=== PATIENT | female | born 1940 | race Caucasian/White ===

== ENCOUNTER 2020-10-20 12:33 | Outpatient (CLI) | payer MEDICARE, SELFPAY ==
--- NOTE | 2020-10-20 12:42 | XR_ITS ---
WS: [id number] Right wrist, 3 views, 10/20/2020 Clinical Data: RIGHT WRIST PAIN Comparison: None. Findings: No fractures or dislocations are seen. The carpal bones are intact. There is no soft tissue swelling. The distal radius and ulna are not remarkable. There are minimal erosions of the ulnar styloid and triquetrum. XR/XR wrist RT min 3V* [id number] Impression: Minimal erosions of the ulnar styloid and triquetrum of the right wrist.
--- NOTE | 2020-10-20 12:42 | XR_ITS ---
WS: [id number] Right shoulder, 3 views, 10/20/2020 Clinical Data: R SHOULDER PAIN Comparison: None. Findings: No fractures or dislocations are seen. The AC joint is normal. The adjacent right clavicle, right sca pula and ribs are normal. The soft tissues are unremarkable. XR/XR shoulder RT min 2V* [id number] Impression: Negative right shoulder.
--- NOTE | 2020-10-20 12:42 | XR_ITS ---
WS: [id number] Left knee, 3 views, 10/20/2020 Clinical Data: LEFT KNEE PAIN Comparison: None. Findings: No fractures or dislocations are seen. The joint spaces are normal. The patella is intact. The soft t issues are unremarkable. 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 Kellgren-Fernando Classification: grade 0 (none): definite absence of x-ray spencer nges of osteoarthritis
--- NOTE | 2020-10-20 12:42 | XR_ITS ---
WS: [id number] Left shoulder, 3 views, 10/20/2020 Clinical Data: LEFT SHOULDER PAIN Comparison: None. Findings: No fractures or dislocations are seen. The AC joint is normal. The adjacent left clavicle, left scapu la and ribs are normal. The soft tissues are unremarkable. 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
== END 2020-10-20 12:34 | disposition home or self-care (01) ==
PROVIDERS: PCP Family Medicine; Visit Provider Family Medicine
DX: M25.511 Pain in right shoulder (principal); M25.512 Pain in left shoulder; M25.531 Pain in right wrist; M25.562 Pain in left knee
CPT/HCPCS: 73030; 73110; 73562

== ENCOUNTER 2021-01-24 12:46 | Outpatient (CLI) | payer MEDICARE, SELFPAY ==
--- NOTE | 2021-01-24 12:45 | USCV_ITS ---
JenaroMicheline adams Age: 80 Gender: F : 1940 Exam Date: 01/24/2021 13:10 Ordering Phys: Kaiser Zee MD Technologist: An Lion [place]am [place] [facility] [place]ication: PAIN IN LIMB, UNSPECIFIED HISTORY: Pain in left popliteal fossa area PROCEDURES: On the left side, the common femoral, superficial femoral, profunda femoral, popliteal, posterior tibial, greater saphenous veins, and the peroneal trunk were identified and interrogated in the standard fashion. FINDINGS: Normal 2-D Doppler and augmentation and compressibility throughout the lower extremity venous structures. Additional imaging through the proximal calf veins also reveals no thrombus. Limited evaluation of the greater saphenous vein is patent with no thrombus.. Complex cystic mass with low level echos and no vascularity measuring 1.3 x 2.7 cm in the left popliteal fossa. CONCLUSIONS No DVT left lower extremity. Left popliteal fossa Freeman's cyst. Dr. Estrella Couch DO (Electronically Signed) Final Date: 24 January 2021 15:39 S
--- NOTE | 2021-01-24 13:07 | XR_ITS ---
WS: [id number] Exam: XR hand LT min 3V* [id number] Date/Time of Exam: 01/24/2021 1:08 PM Reason For Exam: Z79.899 - Other halfway (current) drug therapy No acute fracture or dislocation. Mild degenerative changes of the IP joints. No soft tissue foreign bodies are seen. XR/XR hand LT min 3V* [id number] IMPRESSION: 1. Minimal degenerative changes. No fracture or dislocation.
--- NOTE | 2021-01-24 13:07 | XR_ITS ---
WS: [id number] Exam: XR foot LT min 3V* [id number] Date/Time of Exam: 01/24/2021 1:08 PM Reason For Exam: Z79.899 - Other fpc (current) drug therapy No acute fracture or dislocation. No radiopaque soft tissue foreign bodies are seen. Calcaneal spurs. Degenerative changes at the ankle mortise. XR/XR foot LT min 3V* [id number] IMPRESSION: 1. Minimal degenerative changes. 2. No fracture or bone destruction.
--- NOTE | 2021-01-24 13:07 | XR_ITS ---
WS: [id number] Exam: XR hand RT min 3V* [id number] Date/Time of Exam: 01/24/2021 1:08 PM Reason For Exam: Z79.899 - Other senior living (current) drug therapy No acute fracture or dislocation. [id number] degenerative changes in the IP joints. No soft tis piedad foreign bodies are seen. No sign of bone destruction. XR/XR hand RT min 3V* [id number] IMPRESSION: 1. Degenerative changes of the IP joints. 2. No fracture or bone destruction noted.
--- NOTE | 2021-01-24 13:07 | XR_ITS ---
WS: [id number] Exam: XR chest 2V* [id number] Date/Time of Exam: 01/24/2021 1:07 PM Reason For Exam: Z79.899 - Other termite treater helper (current) drug therapy No priors. The lungs are clear and fully expanded. Normal cardiomediastinal structures. No pleural effusions. Mi ld degenerative changes and dextroscoliosis of the thoracic spine. XR/XR chest 2V* [id number] IMPRESSION: 1. No acute cardiopulmonary finding.
--- NOTE | 2021-01-24 13:07 | XR_ITS ---
WS: [id number] Exam: XR foot RT min 3V* [id number] Date/Time of Exam: 01/24/2021 1:08 PM Reason For Exam: Z79.899 - Other [facility] (current) drug therapy No fracture or dislocation noted. No soft tissue foreign bodies are seen. Mild degenerative changes i n the midfoot joints and IP joints. Calcaneal spurs. XR/XR foot RT min 3V* [id number] IMPRESSION: 1. No fracture or bone destruction. 2. Mild degenerative changes.
[2021-01-24 14:12] LABS: Basophils # 0.1 10^3/uL (0.0-0.1); Basophils % 0.6 %; Eosinophils # 0.2 10^3/uL (0.0-0.8); Eosinophils % 2.5 %; Hematocrit 42.3 % (37.0-47.0); Hemoglobin 13.1 g/dL (11.5-15.3); Lymphocytes # 1.8 10^3/uL (0.8-4.8); Lymphocytes % 22.2 %; Mean Corpuscular Volume 90.4 fl (81-99); Mean Platelet Volume 9.6 fL (7.4-10.4); Monocytes # 0.6 10^3/uL (0.2-0.9); Neutrophils # 5.51 10^3/uL (1.8-7.7); Neutrophils % 67.5 %; Nucleated Red Blood Cells % 0 %; Platelet Count 484 10^3/cmm (130-400); Red Blood Count 4.68 10^6/uL (4.1-5.3); Red Cell Distribution Width 14.3 % (12.1-15.1); White Blood Count 8.2 10^3/uL (4.0-10.0)
[2021-01-24 14:40] LABS: Alanine Aminotransferase 10 U/L (0-33); Albumin Level 4.2 g/dL (3.5-5.2); Alkaline Phosphatase 131 IU/L (35-105); Aspartate Amino Transferase 17 U/L (0-32); Globulin 3.6 g/dL (1.3-4.6); Total Bilirubin 0.3 mg/dL (0.15-1.2); Total Protein 7.8 g/dL (6.6-8.7)
[2021-01-24 15:17] LABS: Hepatitis B Core AB, Total Non-Reactive (Nonreactive); Hepatitis B Surface Antigen Non-Reactive (Nonreactive); Hepatitis C Virus Antibody Non-Reactive (Nonreactive)
[2021-01-25 14:07] LABS: Cyclic Citrullinated Peptide <16 UNITS
[2021-01-27 15:32] LABS: Quantiferon Mitogen 9.21 IU/mL; Quantiferon Nil 0.01 IU/mL; Quantiferon TB Gold NEGATIVE (NEGATIVE)
== END 2021-01-24 12:47 | disposition home or self-care (01) ==
PROVIDERS: PCP Family Medicine; Visit Provider Internal Medicine Rheumatology
DX: M15.9 Polyosteoarthritis, unspecified (principal); M79.669 Pain in unspecified lower leg; Z79.899 Other long term (current) drug therapy; Z11.59 Encounter for screening for other viral diseases; Z11.1 Encounter for screening for respiratory tuberculosis; Z71.89 Other specified counseling
CPT/HCPCS: 36415; 71046; 73130; 73630; 80076; 82565; 85025; 86200; 86431; 86480; 86704; 86803; 87340; 93971; 99204

== ENCOUNTER → 2021-03-07 09:46 | Outpatient (BNVA) | payer MEDICARE, SELFPAY | PROVIDERS: PCP Family Medicine; Visit Provider Internal Medicine Rheumatology | DX: M06.041 Rheumatoid arthritis without rheumatoid factor, right hand (principal); M06.042 Rheumatoid arthritis without rheumatoid factor, left hand; Z79.899 Other long term (current) drug therapy; Z71.89 Other specified counseling | CPT/HCPCS: 99214 ==

== ENCOUNTER → 2021-07-04 13:26 | Outpatient (BNVA) | payer MEDICARE, SELFPAY | PROVIDERS: PCP Family Medicine; Visit Provider Internal Medicine Rheumatology | DX: M06.041 Rheumatoid arthritis without rheumatoid factor, right hand (principal); M06.042 Rheumatoid arthritis without rheumatoid factor, left hand; Z79.899 Other long term (current) drug therapy; Z79.52 Long term (current) use of systemic steroids; Z71.89 Other specified counseling | CPT/HCPCS: 99214 ==